=== PATIENT | female | born 1985 | race Caucasian/White ===

== ENCOUNTER 2021-11-23 08:25 | Outpatient (CLI) | payer OTHER | END 2021-11-23 08:28 | disposition home or self-care (01) | LOC: RX STUDY 08:25 | PROVIDERS: ATTEND Otolaryngology Plastic Surgery within the Head & Neck | DX: R13.19 Other dysphagia (principal) ==

== ENCOUNTER 2024-04-02 07:01 | Emergency (ER) | payer OTHER ==
[~2024-04-02] VITALS: Ht 165.1 cm; Wt 74.8 kg
[2024-04-02] MEDS ORDERED: SYNTHROID50 MCG PO (07:58)
[2024-04-02] MEDS ORDERED: MEPERIDINE HCL/PF 25 MG/ML VIAL IV ONE (09:15)
[2024-04-02] MEDS ORDERED: BARIUM SULFATE 450 ML ORAL.SUSP PO ONE (09:15)
[2024-04-02 09:44] LABS: HEMATOCRIT 40.8 % (36.0-45.00); HEMOGLOBIN 13.9 g/dL (12.0-15.00); MEAN CELL VOLUME 90.2 fL (80.00-100.00); MEAN CORPUSCULAR HEMOGLOBIN 30.7 pg (27.00-32.0); MEAN CORPUSCULAR HGB CONC 34.1 g/dl (32.0-36.0); PLATELET COUNT 283 K/uL (150-450); RED BLOOD COUNT 4.52 M/uL (4.00-6.00); RED CELL DISTRIBUTION WIDTH 13.7 % (11.5-14.5)
[2024-04-02 09:57] LABS: PH,URINE 6.5 (5.0-8.0); URINE APPEARANCE Clear; URINE BILIRRUBIN Negative (NEGATIVE); URINE BLOOD Negative; URINE COLOR Yellow; URINE GLUCOSE Negative (NEGATIVE); URINE KETONE Negative (NEGATIVE); URINE LEUKOCYTE Negative; URINE NITRATE Negative; URINE PROTEIN Negative (NEGATIVE); URINE UROBILINOGEN 0.2 E.U./dl
[2024-04-02 09:59] LABS: URINE BACTERIA 1248.3 uL (0.0-1933); URINE EPITHELIAL CELLS 8.6 uL (0.0-38.8); URINE RBC 13.5 uL (0.0-20.8); URINE WBC 3.7 uL (0.0-23.2)
[2024-04-02 10:24] LABS: INR 1.02; PARTIAL THROMBOPLASTIN TIME 27.6 SECONDS (22.0-34.0); PROTHROMBIN TIME 11.1 SECONDS (9.0-11.5)
[2024-04-02 10:28] LABS: ALBUMIN 3.8 gm/dL (3.4-5.0); BILIRUBIN TOTAL 1.25 mg/dL (0.3-1.2); CALCIUM 9.4 mg/dL (8.5-10.1); CREATININE SERUM 0.84 mg/dL (0.55-1.02); GFR 75.88; GLOBULINA 4.3 G/DL (2.4-3.5); POTASSIUM 3.57 mEq/L (3.5-5.1); TOTAL PROTEIN 8.1 gm/dL (6.4-8.2)
[2024-04-02] MEDS ORDERED: INTESTINEX680 M1 PO (16:18)
[2024-04-02] MEDS ORDERED: PROTONIX40 MG PO (16:18)
[2024-04-02] MEDS ORDERED: METRONIDAZOLE500 MG PO (16:18)
[2024-04-02] MEDS ORDERED: LEVSIN/SL0.125 MG SL (16:18)
[2024-04-02] MEDS ORDERED: CIPRO500 MG PO (16:18)
== END 2024-04-02 17:29 | disposition home or self-care (01) ==
LOC: ER 07:03
PROVIDERS: Emergency Medicine
DX: K57.92 Diverticulitis of intestine, part unspecified, without perforation or abscess without bleeding (principal); R10.9 Unspecified abdominal pain
CPT/HCPCS: 36415; 74177; Q9965